=== PATIENT | female | born 1975 | race Two or more races ===

== ENCOUNTER 2019-04-17 | Emergency (ER) | payer SELFPAY ==
[2019-04-17] VITALS (12 sets, daily range): BP systolic 112–127; BP diastolic 56–75; PULSE 70–100; RESP 11–18; TEMP 36.7–37.2; O2SAT 97–100; BMI 27.4
--- NOTE | 2019-04-17 00:23 | ED.DCSUM_ITS ---
History of Present Illness Chief Complaint: Vag Bleeding Informant: Patient Narrative: Patient stated she is been having vaginal bleeding that is been heavy for the last year. She is from [facility] is visiting on vacation. She is been getting progesterone injections for the last 4 weeks once per week. She finished her last injection just 3 days ago. She stated she had a ultrasound 1 month ago that showed a uterine fibroid and bilateral ovarian cysts. Patient stated she does get clots but they are heavier today. She has been through 7 pads today. She denies any abdominal pain. She states she does not have a history of anemia. Denies . Last menstrual period was 3 weeks ago. Currently she is on day 9 of this menses Past Medical History - Allergies and Home Meds Allergies/Adverse Reactions: Allergies No Known Allergies Allergy (Verified 04/17/19 00:03) Primary Care Physician: NOT,DEFINED [NON-STAFF] - Prior records reviewed: Yes Past Medical History: - - Menorrhagia, uterine fibroid Surgical History: no surgical history Lives: With Family Smoking Status: Never smoker Alcohol: None Drugs: None Review of Systems General: Denies: Chills, Fever, Sweats Eyes: Denies: Visual changes - bilaterally, Diplopia ENT: Denies: Rhinorrhea, Sore throat Cardiovascular: Denies: Chest pain, Palpitations Respiratory: Denies: Dyspnea, Cough, Dyspnea on exertion Gastrointestinal: Denies: Abdominal pain, Nausea, Vomiting, Diarrhea, Melena, Hematochezia Genitourinary: Reports: - - See HPI. Denies: Dysuria, Hematuria, Frequency Musculoskeletal: Denies: Back pain, Extremity Pain Skin: Denies: Rash, Wounds Neurological: Denies: Headache, Weakness, Numbness Physical Exam Vital Signs/Narrative: Vital Signs Temp Pulse Resp BP Pulse Ox 04/17/19 00:01 98.0 F 100 18 127/75 H 99 General: Well nourished, Well developed, No Acute Distress Head: Normocephalic, Atraumatic Eyes: Perrl, EOMI ENT: Moist mucous membranes, No rhinorrhea Neck: Supple, Nontender Cardiovascular: Regular rate, Regular rhythm, No murmurs Respiratory: No distress, CTA bilaterally, Chest nontender Abdomen: Soft, Nontender, Nondistended, Normal bowel sounds Back: Nontender, Normal Inspection Extremities: Nontender, No edema Skin: Normal color, No rash Neurological: Alert, Oriented x3, Cranial nerves II-XII grossly intact, Normal Strength, Normal Sensation Psychological: Normal affect, Normal Mood Diagnostic/Tx/Re-eval Laboratory Results 04/17/19 04/17/19 04/17/19 00:15 00:15 00:15 WBC 6.0 RBC 3.81 L Hgb 8.4 L Hct 28.4 L MCV 74.5 L MCH 22.0 L MCHC 29.6 L RDW Std Deviation 39.4 RDW Coeff of Юлия 14.7 H Plt Count 311 MPV 11.4 Immature Gran % (Auto) 0.500 Neut % (Auto) 49.0 Lymph % (Auto) 38.7 [place] % (Auto) 7.6 Eos % (Auto) 4.0 Baso % (Auto) 0.2 Absolute Neuts (auto) 2.9 Absolute Lymphs (auto) 2.30 Nucleated RBC % 0 Sodium 142 Potassium 3.6 Chloride 110 H Carbon Dioxide 23.0 Anion Gap 9 BUN 10 Creatinine 0.75 Estim Creat Clear Calc 76.50 Est GFR (MDRD) Af Amer 109 Est GFR (MDRD) Non-Af 90 BUN/Creatinine Ratio 13.4 Glucose 119 H Calcium 9.7 Serum , Qual NEGATIVE Blood Type Antibody Screen Crossmatch 04/17/19 00:15 WBC RBC Hgb Hct MCV MCH MCHC RDW Std Deviation RDW Coeff of Юл[place] Plt Count MPV Immature Gran % (Auto) Neut % (Auto) Lymph % (Auto) [place] % (Auto) Eos % (Auto) Baso % (Auto) Absolute Neuts (auto) Absolute Lymphs (auto) Nucleated RBC % Sodium Potassium Chloride Carbon Dioxide Anion Gap BUN Creatinine Estim Creat Clear Calc Est GFR (MDRD) Af Amer Est GFR (MDRD) Non-Af BUN/Creatinine Ratio Glucose Calcium Serum , Qual Blood Type A POSITIVE Antibody Screen NEGATIVE Crossmatch See Detail - Medical Decision Making IV established and given IV fluids. Lab work obtained. Lab work shows a hemoglobin of 8.4. Chloride 110. At this time I discussed blood transfusion with the patient. Normally we would not transfuse at 8.4 but she is having active bleeding. She is going on an airplane back to [facility] tomorrow. I discussed the positives and negatives of doing a blood transfusion and we proceeded to give her 2 units of blood. Her bleeding at this time is mild in nature. I feel this is more of a chronic issue for the patient that his picked up in severity over the last couple days. She is can follow-up with her [facility]. I do not feel she needs repeat imaging. I suspect this is likely secondary to her fibroid. They may need to change her contraceptive. We discussed the possibility of her needing a hysterectomy in the future. Also received a dose of IV Premarin to try to slow her bleeding and will be discharged on iron sulfate ED Disposition - Plan for ED Patient: Diagnosis: Menometrorrhagia, Anemia, Uterine fibroid Instructions: Dysfunctional Uterine Bleeding Prescriptions: Ferrous Sulfate [Iron] 325 mg PO DAILY #30 tab Prescription Printed Referrals: NOT,DEFINED [NON-STAFF] - Additional Instructions: Please follow with your [facility] when you return home
[2019-04-17 00:34] LABS: Absolute Neutrophil Count 2.9 X10^3/uL (2.0-7.7); Basophil# 0.01 X10^3/uL; Basophil% 0.2 % (0-1); Eosinophil# 0.24 X10^3/uL; Hematocrit 28.4 % (37-47); Hemoglobin 8.4 g/dL (12.0-15.0); Lymphocyte % 38.7 % (19-41); Mean Corp Hgb Conc 29.6 g/dL (32-36); Mean Corpuscular Volume 74.5 fL (81-99); Mean Platelet Vol. 11.4 fl (6.2-12.0); Monocyte# 0.45 X10^3/uL; Monocyte% 7.6 % (0-10); NRBC Flagged by Analyzer 0 % (0-5); Neutrophil # 2.92 X10^3/uL (2.7-7.7); Platelet Count 311 K/mm3 (150-450); RBC Distribution Width CV 14.7 % (11.6-14.6); RBC Distribution Width SD 39.4 fl (35.1-43.9); Red Blood Count 3.81 M/mm3 (4.2-5.4)
[2019-04-17] MEDS: 0.9% Normal Saline 1,000 ML 1000 ML IV (00:35)
[2019-04-17 00:42] LABS: Internal QC Validated? YES +Cl - CLEAR BKGD; Pregnancy, Serum, hCG Quali. NEGATIVE Negative
[2019-04-17 00:46] LABS: Anion Gap 9 (5-15); BUN 10 mg/dL (7-18); BUN/Creat Ratio 13.4 RATIO (10-20); Calcium,Total 9.7 mg/dL (8.5-10.1); Chloride 110 mmol/L (98-107); Creatinine, Serum 0.75 mg/dL (0.55-1.02); EST Glomerular Filtration Rate 90 mL/min (>60); Est Glom Filt Rate - Afr Amer 109 mL/min (>60); Glucose 119 mg/dL (74-106); Potassium 3.6 mmol/L (3.5-5.1); Sodium Level 142 mmol/L (136-145)
--- NOTE | 2019-04-17 06:14 | ED.RN ---
PATIENT IS TOLERATING THE BLOOD WELL. NO EDEMA NOTED, LUNGS ARE CLEAR, AND NOT RASH NOTED BY THIS NURSE. THE SECOND UNIT OF BLOOD AFTER THE INITIAL 15 MINUTE PERIOD IS RUNNING AT 200 CC'S PER HOUR.
[2019-04-17] MEDS: Estrogens,Conj. 25 MG Vial IV (08:37)
== END 2019-04-17 09:02 | disposition home or self-care (01) ==
PROVIDERS: Emergency Provider Emergency Medicine
DX: N92.1 Excessive and frequent menstruation with irregular cycle (principal); D64.9 Anemia, unspecified; D25.9 Leiomyoma of uterus, unspecified
CPT/HCPCS: 80048; 84703; 85025; 86850; 86900; 86901; 86920; 96361; 96374; 99283; J7030; P9016; A4216; J1410